=== PATIENT | female | born 1990 | race Caucasian/White ===

== ENCOUNTER 2018-03-24 11:35 | Observation (INO) | payer BC ==
[2018-03-24 12:19] LABS: #Eosinphils 0.1 thou/uL (0.0-0.7); #Lymphocytes 2.5 thou/uL (1.20-3.40); #Monocytes 0.7 thou/uL (0.11-0.59); #Neutrophils 7.8 thou/uL (1.40-6.50); %Basophils 0.3 % (0.0-1.0); %Eosinophils 0.6 % (0.0-10.0); %Lymphocytes 22.8 % (21.0-51.0); %Monocytes 5.9 % (0.0-10.0); %Neutrophils 70.5 % (42.0-75.0); Hemoglobin 12.7 g/dL (12.0-16.0); Mean Corpuscular HGB CONC 35.5 g/dL (32.0-36.0); Mean Corpuscular Hemoglobin 30.3 pg (27.0-31.0); Mean Corpuscular Volume 85.4 fL (78.0-98.0); Mean Platelet Volume 8.6 fL (7.4-10.4); PLT Morphology Comment Appears Decreased; Platelet Count 99 thou/uL (130-400); RBC Distribution Width 11.6 % (11.5-14.5); Red Blood Cell (RBC) Count 4.21 mill/uL (4.20-5.40)
[2018-03-24 12:22] LABS: ALT (SGPT) Less than 7 U/L (8-55); AST (SGOT) 12 U/L (5-34); Alkaline Phosphatase 49 U/L (40-150); Anion Gap 14 mmol/L (10-20); BUN (Urea Nitrogen) 13 mg/dL (7.0-18.7); Bilirubin, Total 0.3 mg/dL (0.2-1.2); CK (CPK) 29 U/L (29-168); Calc. Creatinine Clearance 0 mL/min (70-130); Calcium 8.7 mg/dL (7.8-10.44); Carbon Dioxide 18 mmol/L (22-29); Chloride 105 mmol/L (98-107); Estimated GFR-MDRD Greater than 90; Globulin 2.8 g/dL (2.4-3.5); Glucose 75 mg/dL (70-105); Lipase 45 U/L (8-78); Potassium 3.6 mmol/L (3.5-5.1); Protein, Total 6.8 g/dL (6.0-8.3); Sodium 133 mmol/L (136-145)
--- NOTE | 2018-03-24 12:26 | RAD ---
AP VIEW CHEST: Date: 03/23/18 HISTORY: 16 weeks with chest pain and shortness of breath. COMPARISON: None. FINDINGS: Lungs are clear. Cardiomediastinal silhouette is normal. No acute osseous abnormality is evident. IMPRESSION: No acute cardiopulmonary abnormality. POS: [facility]
[2018-03-24 12:27] LABS: CKMB 0.4 ng/mL (0-6.6); Troponin I Less than 0.010 ng/mL (< 0.028)
[2018-03-24 13:08] LABS: Bilirubin Negative (Negative); Blood, Urine Negative (Negative); Clarity CLEAR (Clear); Glucose, Urine (Dipstick) Negative (Negative); Leukocyte Negative (Negative); Nitrite Negative (Negative); Protein, Urine (Dipstick) Negative (Neg-Trace); Urobilinogen 0.2 mg/dL (0.2-1.0)
--- NOTE | 2018-03-24 13:15 | ULT ---
BILATERAL LOWER EXTREMITY DOPPLER VENOUS ULTRASOUND: Date: 03/24/18 INDICATION: 16 weeks with chest pain and shortness of breath, concern for deep venous thrombosis. TECHNIQUE: Flroes scale, color Doppler, and vascular duplex with spectral analysis was performed of the deep venou s structures of the bilateral lower extremities. The common femoral vein, superficial femoral vein, p roximal greater saphenous vein, proximal greater profunda vein, popliteal, and posterior tibial veins were assessed. FINDINGS: Normal compression, flow, and augmentation was seen within the deep venous structures of both lower e xtremities. IMPRESSION: No evidence of deep venous thrombosis within both lower extremities. POS: [facility]
[2018-03-24 13:17] LABS: Pregnancy Test - Urine (BHCG) POSITIVE (Negative); Pregu Control Background? CLEAR/WHITE (CLR/WHITE); Pregu Control Bar Appear? YES (CONTROL BAR)
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
[2018-03-24 15:39] LABS: Troponin I Less than 0.010 ng/mL (< 0.028)
[2018-03-24 16:02] VITALS: BMI 24.0
[2018-03-24 16:08] LABS: Magnesium 1.7 mg/dL (1.6-2.6); Phosphorus 3.8 mg/dL (2.3-4.7)
[2018-03-24] MEDS ORDERED: Lidocaine 2% Viscous Solution 10 ML, Aluminum & Magnesium Hydroxide 30 ML SSW SCH (17:30)
[2018-03-24 18:33] LABS: Troponin I Less than 0.010 ng/mL (< 0.028)
--- NOTE | 2018-03-25 06:08 | PDOC.FM ---
- Subjective Subjective: Ms Fernandez is a 27yo female @16wks by 1st trimester US presenting with chest pain and SOB. She received GI cocktail around 1999. Chest pain resolved around 200am this morning. Denies CP, COB, [place] this morning. - Objective MAR Reviewed: Yes Vital Signs & Weight: Vital Signs (12 hours) Temp Pulse Resp BP Pulse Ox 03/25/18 04:03 98.0 F 85 16 105/64 97 03/24/18 19:46 98 F 98 18 03/24/18 19:33 98 F 98 18 115/76 98 03/24/18 19:01 98 Weight Weight 71.123 kg I&O: 03/23/18 03/24/18 03/25/18 06:59 06:59 06:59 Intake Total 1080 Balance 1080 Result Diagrams: 03/24/18 11:51 03/24/18 11:51 EKG Reviewed by me: Yes Radiology Reviewed by me: Yes <Gina Blanca - Last Filed: 03/25/18 09:34> - Objective Vital Signs & Weight: Vital Signs (12 hours) Temp Pulse Resp BP Pulse Ox 03/25/18 08:00 98.7 F 87 15 03/25/18 07:08 98.7 F 87 15 110/76 96 Weight Weight 71.123 kg I&O: 03/24/18 03/25/18 03/26/18 06:59 06:59 06:59 Intake Total 1080 Balance 1080 Result Diagrams: 03/24/18 11:51 03/24/18 11:51 <Dillon Marsh - Last Filed: 03/25/18 16:34> Phys Exam - Physical Examination Constitutional: NAD Respiratory: no wheezing, clear to auscultation bilateral Cardiovascular: RRR Gastrointestinal: soft, non-tender, positive bowel sounds gravid Musculoskeletal: no edema, pulses present Neurological: moves all 4 limbs Psychiatric: normal affect, A&O x 3 Skin: cap refill <2 seconds <Gina Blanca - Last Filed: 03/25/18 09:34> Dx/Plan (1) Chest pain Code(s): R07.9 - CHEST PAIN, UNSPECIFIED Status: Acute (2) Status: Acute QualifierTitle: Weeks of gestation: 16 weeks Qualified Code(s): Z3A.16 - 16 weeks gestation of (3) Thrombocytopenia Code(s): D69.6 - THROMBOCYTOPENIA, UNSPECIFIED Status: Acute (4) History of gestational hypertension Code(s): Z87.59 - PERSONAL HISTORY OF COMP OF PREG, CHLDBRTH AND THE PUERP Status: Acute - Plan Plan: Ms Fernandez is a 27yo female @ 16wks by 1st trimester US presenting with chest pain and SOB. 1. Atypical Chest Pain - Heart Score: 2 - Wells: 1.5 - EKG nml - CXR- no acute abnormalities - Venous US- no evidence of DVT - Strong FH of DC at young age - TSH, Mg, Phos nml - Possible GERD, received GI cocktail yesterday, minimal relief - Admit to tele for observation - No events overnight 2. 16wks - NOAM 09/07/18 - Avoid teratogenic meds - Notified patient's OB, Dr. Owens at [facility] - records requested 3. Tachycardia - Denies any history of anxiety - Continue to monitor and consider gentle fluids if persistent. - NSR on EKG. - D-dimer negative as above. - Fever this a.m. but no fever since. 5. Hx of seizure d/o: - No seizure in > 1.5 years and not on any antiepileptic medication. - Will monitor. 6. Thrombocytopenia - unclear if acute or chronic, no signs of bleeding or easy bruising at this time - recommend monitoring throughout - consider additional workup vs treatment 7. Hx of gestational HTN - Consider aspirin during Dispo: D/c today <Gina Blanca - Last Filed: 03/25/18 09:34> Attending Addendum - Attending Addendum Date/Time: 03/25/18 [id number] I personally evaluated the patient and discussed the management with Dr. Blanca and team. I agree with and repeated the History, Examination, Assessment and Plan documented above with any addition or exceptions noted below. H/o intermittent migraines, with a similar one day of chest pain. Doing nothing in particular when it started. Non-exertional. Mild nausea. Pressure/ burning and did not radiate with no diaphoresis. Has currently resolved. Her exam is unremarkable and not concerning for structural heart disease, DVT/PE, AD , or other significant pathology. Labs and imaging reviewed. Very low suspicion for PE. Very low suspicion for ACS. Reassurance. Follow up with primary OB for workup of thrombocytopenia as they deem appropriate and can be performed on an outpatient basis. We are happy to see her after her for any primary care needs. We discussed her follow up in detail and she voiced understanding to return if chest pain, shortness of breath, change in headache, or any other concerns. <Dillon Marsh - Last Filed: 03/25/18 16:34>
[2018-03-25 07:40] VITALS: BP 110/76; TEMP 98.7
[2018-03-25] MEDS ORDERED: Prenatal Vitamin 1 TAB PO SCH (09:00)
--- NOTE | 2018-03-25 13:58 | DIS-2 ---
DATE OF ADMISSION: 03/24/2018 DATE OF DISCHARGE: 03/25/2018 RESIDENT: Gina Blanca M.D., PGY1. ADMITTING ATTENDING: Bertha Coronado M.D. DISCHARGE ATTENDING: Dillon Marsh M.D. CONSULTATIONS: None. PROCEDURES: None. PRIMARY DIAGNOSIS: Noncardiac chest pain. SECONDARY DIAGNOSES: 1. . 2. Thrombocytopenia. 3. History of gestational hypertension. DISCHARGE MEDICATIONS: vitamin. DISCONTINUED MEDICATIONS: None. HISTORY OF PRESENT ILLNESS: Ms. Fernandez is a 27-year-old female at 16 weeks by first trimester ultrasound, presenting with shortness of breath and chest pain described as someone sitting on her chest. She had a normal EKG, chest x-ray and venous Dopplers. Troponins x3 and D-dimer were negative. Her heart score: 2 and Wells: 1.5. She does have a notable strong family history of [place] at an age less than 50 in 4 paternal family members including her father. She also received a GI cocktail to r/o gastroesophageal reflux disease as a cause of pain. This provided minimal relief. There were no events while she was monitored on tele. No current problems in . She does of have a hx of gestational HTN but BP's were within normal limits throughout stay. She has a history of what sounds like grand mal seizures that started at age 16. She had been treated with Lamictal until a year and a half ago. At that time she stopped antiepileptic medication and has not had a seizure since. She was noted to have thrombocytopenia on initial CBC. This could be considered for additional workup versus treatment in the outpatient setting. She was noted to be tachycardic on admission, but denied any history of anxiety. This resolved during her stay. DISPOSITION: Stable. DISCHARGE INSTRUCTIONS: 1. Location: Home. 2. Diet: Regular. 3. Activity: No restrictions. 4. Followup: Follow up with Dr. Blanca in clinic within 7 days or at earliest convenience. If symptoms return go to the closest urgent care or emergency department. [facility]
== END 2018-03-25 11:10 | disposition home or self-care (01) ==
LOC: ERS 11:35 → 2SW 13:50
PROVIDERS: ADMIT Family Medicine; ATTEND Family Medicine
DX: O99.89 Other specified diseases and conditions complicating pregnancy, childbirth and the puerperium (principal); R07.89 Other chest pain; O99.112 Other diseases of the blood and blood-forming organs and certain disorders involving the immune mechanism complicating pregnancy, second trimester; D69.6 Thrombocytopenia, unspecified; Z87.59 Personal history of other complications of pregnancy, childbirth and the puerperium; Z3A.16 16 weeks gestation of pregnancy
CPT/HCPCS: 36415; 71045; 80053; 81003; 81025; 82553; 83690; 83735; 84100; 84443; 84484; 85025; 85379; 93005; 93970; 94760; G0378